=== PATIENT | male | born 1945 | race Native Hawaiian/Other Pacific Islander ===

== ENCOUNTER 2017-08-06 20:13 | Emergency (ER) | payer OTHER ==
[~2017-08-06] VITALS: Ht 165.1 cm; Wt 79.4 kg
[2017-08-06] MEDS ORDERED: HYDROCHLOROT12.5 M1 PO (20:30)
[2017-08-06 20:53] LABS: PLATELET COUNT 257 K/uL (142-355)
[2017-08-06 21:01] LABS: POTASSIUM 2.7 mmol/L (3.6-5.2)
[2017-08-07] VITALS: BP 112/60; TEMP 98.1
== END 2017-08-07 | disposition short-term general hospital (02) ==
LOC: ED 20:13
PROVIDERS: Specialist
DX: R10.13 Epigastric pain (principal); R07.89 Other chest pain
CPT/HCPCS: 36415; 80053; 81000; 82550; 82553; 83735; 84100; 84484; 85027; 85379; 85610; 85730; 96361; 96365; 96366; 96375; 96376; 99285; J2270; J2405; J2543; J3490

== ENCOUNTER → 2017-08-06 | Outpatient (CLI) | payer OTHER ==
[~2017-08-06] MED LIST: HYDROCHLOROT12.5 M1 PO
== END | disposition short-term general hospital (02) ==
LOC: AMB 23:41
DX: R10.13 Epigastric pain (principal); R07.89 Other chest pain
CPT/HCPCS: A0425; A0427

== ENCOUNTER 2019-05-10 11:00 | Emergency (ER) | payer OTHER ==
[~2019-05-10] VITALS: Ht 165.1 cm; Wt 79.4 kg
[2019-05-10 11:05] VITALS: TEMP 98.2
[2019-05-10 11:43] LABS: PLATELET COUNT 353 K/uL (142-355)
[2019-05-10 11:52] LABS: POTASSIUM 3.2 mmol/L (3.6-5.2)
[2019-05-10 12:01] LABS: PARTIAL THROMBOPLASTIN TIME 26.1 SECONDS (24.5-33.6)
[2019-05-10 18:26] VITALS: BP 109/64
== END 2019-05-10 19:03 | disposition home or self-care (01) ==
LOC: ED 11:00
PROVIDERS: Student in an Organized Health Care Education/Training Program
DX: R79.89 Other specified abnormal findings of blood chemistry (principal); J18.9 Pneumonia, unspecified organism
CPT/HCPCS: 80048; 83735; 83880; 84484; 85027; 85610; 85730; 87040; 87502; 93005; 94664; 96365; 96366; 96375; 99284; J0456; J0696; J2930; Q9963

== ENCOUNTER 2020-06-07 08:06 | Emergency (ER) | payer OTHER ==
[~2020-06-07] VITALS: Ht 165.1 cm; Wt 79.4 kg
[2020-06-07 08:28] LABS: PLATELET COUNT 307 K/uL (142-355)
[2020-06-07 08:36] LABS: POTASSIUM 2.8 mmol/L (3.6-5.2)
[2020-06-07 08:47] LABS: PARTIAL THROMBOPLASTIN TIME 23.2 SECONDS (24.5-33.6)
[2020-06-07 11:16] VITALS: BP 116/63; TEMP 97.6
== END 2020-06-07 11:16 | disposition short-term general hospital (02) ==
LOC: ED 08:06
PROVIDERS: Hospitalist
DX: U07.1 COVID-19 (principal); J12.82 Pneumonia due to coronavirus disease 2019; R79.89 Other specified abnormal findings of blood chemistry
CPT/HCPCS: 36600; 80053; 82550; 82805; 83605; 84484; 85027; 85379; 85610; 85730; 87040; 87635; 87651; 93005; 94664; 96360; 96365; 96366; 96372; 96375; 99284; 99285; J1650; J1956; U0003